=== PATIENT | male | born 1990 | race Caucasian/White ===

== ENCOUNTER 2018-07-20 23:11 | Emergency (ER) | payer OTHER ==
[2018-07-20] MEDS ORDERED: Ketorolac Tromethamine 30 MG/ML VIAL ONE (23:43)
--- NOTE | 2018-07-20 23:53 | RAD ---
LEFT WRIST THREE VIEWS: 07/20/18 HISTORY: 28-year-old male with history of left wrist pain. There is extensive old deformity of the distal radius, evidence for a healed distal radial fracture w ith considerable foreshortening and dorsal angulation. This foreshortening results in distal ulna ess entially abutting the region of the triquetrum. There appears to be an old distal ulnar fracture as w ell. IMPRESSION: Marked old deformity involving the distal radius and ulna, evidence for old fractures that are healed with considerable foreshortening of the distal radius with dorsal angulation with resultant elongati on of the distal ulna relative to the radius with abnormal radiocarpal joint and abnormal distal radi oulnar joint. No evidence for acute fracture. POS: [facility]
--- NOTE | 2018-07-21 09:15 | CT ---
PRELIMINARY REPORT/[facility]/EMERGENTY AFTER-HOURS PROCEDURE CT Left Upper Extremity Without Contrast, Wrist EXAM DATE/TIME: 07/21/2018 12:23 AM CLINICAL HISTORY: 28 years old, male; Injury or trauma; Fall; Initial encounter; Abrasion; Wrist; Left; Patient HX: M28 w pmh of epilepsy presents to the ed via police for evaluation of left wrist pain S/P falling 2 hour s ago. PT. Reports that he was walking, tripped and fell injuring his wrist during incident. TECHNIQUE: CT of the Left upper extremity without intravenous contrast was performed. Exam focused on the wrist. Sagittal reformatted images were created and reviewed. COMPARISON: No relevant prior studies available. FINDINGS: Bones/joints: Old distal radius fracture. Well-corticated ossific fragment off the dorsal radial aspe ct of the distal radial styloid consistent with prior trauma. Old ulnar styloid fracture. No evidence of acute fracture. Soft tissues: Normal. IMPRESSION: No evidence of acute fracture Thank you for allowing us to participate in the care of your patient. Dictated and Authenticated by: Kiko Kraft MD 07/21/2018 1:03 AM Central Time ([place] & [place]) FINAL INTERPRETATION CT LEFT WRIST: 07/21/2018 HISTORY: Fall. Injury. Pain. COMPARISON: None. FINDINGS: There is an old corticated fracture involving the ulnar styloid. There is an old fracture of the dis yao left radius with dorsal angulation. There is significant positive ulnar variance. There is no w idening of the scapholunate interval. The scaphoid bone appears intact. IMPRESSION: Old fracture of distal radius and ulna. No acute fractures evident. Recommend follow-up radiographs of the left wrist in 7-10 days if symptoms persist. I agree with the preliminary [facility] report, dictated by Dr. Kiko Kraft. POS: [facility]
== END 2018-07-21 02:04 ==
LOC: ERS 23:11
DX: S60.212A Contusion of left wrist, initial encounter (principal); F17.210 Nicotine dependence, cigarettes, uncomplicated; W01.0XXA Fall on same level from slipping, tripping and stumbling without subsequent striking against object, initial encounter
CPT/HCPCS: 96372; J1885

== ENCOUNTER 2018-09-10 22:49 | Emergency (ER) | payer OTHER ==
--- NOTE | 2018-09-10 23:42 | RAD ---
LEFT FOREARM TWO VIEW 09/10/18 HISTORY: Pain. COMPARISON: None. FINDINGS: There is an old fracture of the distal radius with dorsal angulation. There is subsequent positive ul partha variance. Old ulnar styloid fracture. Forearm is intact. IMPRESSION: Intact forearm. POS: [facility]
--- NOTE | 2018-09-10 23:43 | RAD ---
LEFT HAND THREE VIEW 09/10/18 HISTORY: Pain, deformity. COMPARISON: None. FINDINGS: Hand is intact. Old distal radius fracture and old ulnar styloid fracture. IMPRESSION: Chronic findings. No acute fracture of the hand. POS: [facility]
[2018-09-10] MEDS ORDERED: Morphine 4 MG/ML VIAL ONE (23:48)
[2018-09-10] MEDS ORDERED: Ketorolac Tromethamine 30 MG/ML VIAL ONE (23:48)
== END 2018-09-11 00:31 ==
LOC: ERS 22:49
DX: M25.532 Pain in left wrist (principal); G40.909 Epilepsy, unspecified, not intractable, without status epilepticus; F17.210 Nicotine dependence, cigarettes, uncomplicated; Z79.899 Other long term (current) drug therapy
CPT/HCPCS: 96374; J1885; J2270